=== PATIENT | male | born 1965 | race African-American/Black ===

== ENCOUNTER 2022-11-10 17:22 | Inpatient (IN) | payer OTHER ==
[2022-11-10] MEDS ORDERED: FAMOTIDINE 20 MG/50 ML IVPB 20 MG/50 ML MG IVPB ONE (17:57)
[2022-11-10] MEDS ORDERED: MAG HYDROX/AL HYDROX/SIMETH 30 ML UNIT-DOSE CUP PO ONE (17:57)
[2022-11-10] MEDS ORDERED: ASPIRIN 81 MG CHEWABLE TABLETS ONE (18:48)
[2022-11-10] MEDS ORDERED: ASPIRIN 81 MG CHEWABLE TABLETS PO ONE (19:02)
[2022-11-10 19:19] LABS: BASO % 0.6 % (0-2.0); EOS % 1.2 % (0-4.5); HEMATOCRIT 38.2 % (35.4-49); LYMPH % 30.7 % (8-40); MCH 29.2 pg (25.7-33.7); MCHC 33.9 g/dl (32.0-35.9); MEAN PLT VOLUME 10.1 fl (7.5-11.1); MONO % 6.8 % (3.8-10.2); NEUT % 60.7 % (42.8-82.8); PLATELET COUNT 182 10^3/uL (134-434); RBC 4.45 M/mm3 (4.00-5.60); RDW 15.5 % (11.9-15.9); WHITE BLOOD COUNT 7.6 K/mm3 (4.0-10.0)
[2022-11-10 19:46] LABS: POTASSIUM 3.9 mmol/L (3.5-5.1)
[2022-11-10 19:49] LABS: ALBUMIN 3.6 g/dl (3.4-5.0); BLOOD UREA NITROGEN 10.8 mg/dL (7-18); CALCIUM 9.2 mg/dL (8.5-10.1)
[2022-11-10 19:53] LABS: TOT PROT 7.6 g/dl (6.4-8.2)
[2022-11-10 19:57] LABS: BILIRUBIN,TOTAL 0.5 mg/dL (0.2-1)
[2022-11-10] MEDS ORDERED: ACETAMINOPHEN 325 MG TABLET (FP) PO PRN (20:22)
[2022-11-10] MEDS ORDERED: ISOSORBIDE MONONITRATE 30 MG TAB.SR.24H (FP) PO ONE (21:55)
[2022-11-10] MEDS: ISOSORBIDE MONONITRATE 30 MG TAB.SR.24H (FP) PO SCH (22:01)
[2022-11-10] MEDS: INSULIN SLIDING SCALE (NOVOLOG) 1 VIAL SQ SCH (22:02)
[2022-11-10 23:34] VITALS: BMI 33.6
[2022-11-11] MEDS: INSULIN SLIDING SCALE (NOVOLOG) 1 VIAL SQ SCH ×4 (06:28→21:49)
[2022-11-11 08:01] LABS: HEMATOCRIT 33.7 % (35.4-49); HEMOGLOBIN 11.5 GM/dL (11.7-16.9); MCH 29.2 pg (25.7-33.7); MEAN CELL VOLUME 85.9 fl (80-96); MEAN PLT VOLUME 10.8 fl (7.5-11.1); PLATELET COUNT 162 10^3/uL (134-434); RBC 3.92 M/mm3 (4.00-5.60); RDW 15.7 % (11.9-15.9); WHITE BLOOD COUNT 6.9 K/mm3 (4.0-10.0)
[2022-11-11 08:17] LABS: POTASSIUM 4.1 mmol/L (3.5-5.1)
[2022-11-11 08:20] LABS: CALCIUM 8.5 mg/dL (8.5-10.1)
[2022-11-11 08:21] LABS: ALBUMIN 3.1 g/dl (3.4-5.0); BLOOD UREA NITROGEN 15.8 mg/dL (7-18)
[2022-11-11 08:24] LABS: CREATININE 0.9 mg/dL (0.55-1.3)
[2022-11-11 08:25] LABS: CHOLESTEROL 119 mg/dL (50-200); TOT PROT 6.2 g/dl (6.4-8.2)
[2022-11-11 08:26] LABS: BILIRUBIN,TOTAL 0.5 mg/dL (0.2-1); LDL CHOLESTEROL (ONLY SJRH) 81 mg/dL (5-100)
[2022-11-11 08:29] LABS: HDL CHOLESTEROL 39 mg/dL (40-60)
[2022-11-11] MEDS ORDERED: REGADENOSON 0.4 MG/5 ML PRE-FILLED SYRINGE IVPUSH ONE (09:45)
[2022-11-11] MEDS ORDERED: FLU VACC QS2022-23(6MOS UP)/PF 60 MCG/0.5 ML SYRINGE IM ONE ×2 (09:45→10:00)
[2022-11-11] MEDS ORDERED: ASPIRIN COATED 81 MG TABLET.EC PO SCH (10:00)
[2022-11-11] MEDS: ASPIRIN 81 MG CHEWABLE TABLETS PO SCH (11:53)
[2022-11-11] MEDS: FAMOTIDINE 20 MG TABLET PO SCH (11:53)
[2022-11-11] MEDS: ISOSORBIDE MONONITRATE 30 MG TAB.SR.24H (FP) PO SCH (11:54)
[2022-11-11] MEDS: amLODIPine BESYLATE 5 MG TABLET (FP) PO SCH (11:54)
[2022-11-11] MEDS ORDERED: INSULIN (NOVOLOG) ASPART 100 UNITS/ML 10ML VIAL ONE (16:23)
[2022-11-12] MEDS: INSULIN SLIDING SCALE (NOVOLOG) 1 VIAL SQ SCH (06:25)
[2022-11-12] MEDS: FAMOTIDINE 20 MG TABLET PO SCH (09:07)
[2022-11-12] MEDS: ISOSORBIDE MONONITRATE 30 MG TAB.SR.24H (FP) PO SCH (09:07)
[2022-11-12] MEDS: ASPIRIN 81 MG CHEWABLE TABLETS PO SCH (09:07)
[2022-11-12] MEDS: amLODIPine BESYLATE 5 MG TABLET (FP) PO SCH (09:07)
[2022-11-12 10:24] VITALS: BP 174/95; PULSE 72; RESP 22; TEMP 97.8
== END 2022-11-12 11:32 | disposition short-term general hospital (02) | DRG 205 ==
LOC: JER 17:22 → JERBED 20:21 → J4W 23:03 → OBSVTOIN 11-11 14:29
PROVIDERS: ADMIT Family Medicine; ATTEND Family Medicine
DX: I42.2 Other hypertrophic cardiomyopathy (principal); I25.10 Atherosclerotic heart disease of native coronary artery without angina pectoris; I10 Essential (primary) hypertension; E78.5 Hyperlipidemia, unspecified; R94.31 Abnormal electrocardiogram [ECG] [EKG]; R07.89 Other chest pain; I24.8 Other forms of acute ischemic heart disease; I44.0 Atrioventricular block, first degree; F12.90 Cannabis use, unspecified, uncomplicated; R10.13 Epigastric pain; R06.02 Shortness of breath
CPT/HCPCS: 0241U-QW; 36415; 71046-TC-FY; 78452-TC; 80053; 80061; 82962; 83036; 83690; 83880; 84484; 85025; 85027; 93005; 93010; 93017; 93306-TC; 99285-25; A9502; G0008; G0378; Q2036

== ENCOUNTER 2024-11-09 20:39 | Inpatient (IN) | payer OTHER ==
[2024-11-09 21:31] LABS: ABSOLUTE IMMATURE GRANULOCYTES 0.02 x10^3/uL (0.0-0.031); BASOPHILS # 0.04 x10^3/uL (0.01-0.08); EOSINOPHILS # 0.08 x10^3/uL (0.04-0.54); HEMATOCRIT 37.9 % (40.1-51.0); HEMOGLOBIN 12.7 g/dL (13.7-17.5); MCHC 33.5 g/dl (32.3-36.5); MEAN CELL VOLUME 86.9 fl (79.0-92.2); MEAN PLT VOLUME 12.4 fl (9.4-12.4); MONOCYTE # 0.63 x10^3/uL (0.30-0.82); MONOCYTE % 7.7 % (5.3-12.2); PLATELET COUNT 196 x10^3/uL (163-337); RDW 15.4 % (12.2-16.1)
[2024-11-09 21:43] LABS: INR 1.14 (0.83-1.09); PROTHROMBIN TIME (PATIENT) 12.6 SEC (9.7-13.0)
[2024-11-09 21:45] LABS: ACTIVATED PTT 34.5 SECONDS (25.2-36.5)
[2024-11-09 21:53] LABS: ALBUMIN 4.2 g/dl (3.4-5.0); BILIRUBIN,TOTAL 0.5 mg/dl (0.2-1); CALCIUM 9.5 mg/dl (8.5-10.1); CREATININE 1.3 mg/dl (0.6-1.3); MAGNESIUM 1.4 mg/dL (1.8-2.4); POTASSIUM 3.8 mmol/L (3.5-5.1)
[2024-11-09] MEDS: MAGNESIUM 1GM/D5W - 1 GM/100 ML IVPB IVPB ONE (23:18)
[2024-11-09] MEDS ORDERED: MAGNESIUM 1GM/D5W - 1 GM/100 ML IVPB IVPB ONE (23:18)
[2024-11-09 23:57] LABS: HCV DIAGNOSTIC IN-HOUSE W/RFLX NON-REACTIVE (NONREACTIVE); HIV INTERPRETATION NEGATIVE (NEGATIVE)
[2024-11-10 07:52] LABS: ABSOLUTE IMMATURE GRANULOCYTES 0.02 x10^3/uL (0.0-0.031); BASOPHILS # 0.03 x10^3/uL (0.01-0.08); EOSINOPHIL % 1.3 % (0.8-7.0); EOSINOPHILS # 0.09 x10^3/uL (0.04-0.54); HEMATOCRIT 34.8 % (40.1-51.0); HEMOGLOBIN 11.3 g/dL (13.7-17.5); MCHC 32.5 g/dl (32.3-36.5); MEAN CELL VOLUME 86.8 fl (79.0-92.2); MEAN PLT VOLUME 12.7 fl (9.4-12.4); MONOCYTE # 0.72 x10^3/uL (0.30-0.82); MONOCYTE % 10.1 % (5.3-12.2); PLATELET COUNT 161 x10^3/uL (163-337); RDW 15.7 % (12.2-16.1)
[2024-11-10 09:02] LABS: ALBUMIN 3.2 g/dl (3.4-5.0); BILIRUBIN,TOTAL 0.4 mg/dL (0.2-1); BLOOD UREA NITROGEN 16.3 mg/dL (7-18); CALCIUM 8.9 mg/dL (8.5-10.1); POTASSIUM 3.2 mmol/L (3.5-5.1); TOT PROT 6.5 g/dl (6.4-8.2)
[2024-11-10] MEDS: PANTOPRAZOLE 40 MG TABLET PO SCH (10:23)
[2024-11-10] MEDS: ATORVASTATIN CA 40 MG TABLET (FP) PO SCH (21:42)
[2024-11-11 08:08] LABS: POTASSIUM 3.3 mmol/L (3.5-5.1)
[2024-11-11 08:09] LABS: CALCIUM 9.5 mg/dL (8.5-10.1)
[2024-11-11 08:10] LABS: BLOOD UREA NITROGEN 16.3 mg/dL (7-18); MAGNESIUM 1.6 mg/dL (1.8-2.4)
[2024-11-11] MEDS: LOSARTAN POTASSIUM 50 MG TABLET PO SCH (09:58)
[2024-11-11] MEDS: amLODIPine BESYLATE 5 MG TABLET (FP) PO SCH (09:58)
[2024-11-12 07:38] LABS: ABSOLUTE IMMATURE GRANULOCYTES 0.02 x10^3/uL (0.0-0.031); BASOPHILS # 0.04 x10^3/uL (0.01-0.08); EOSINOPHIL % 1.1 % (0.8-7.0); EOSINOPHILS # 0.09 x10^3/uL (0.04-0.54); HEMATOCRIT 40.6 % (40.1-51.0); HEMOGLOBIN 13.4 g/dL (13.7-17.5); MEAN CELL VOLUME 84.9 fl (79.0-92.2); MONOCYTE # 0.62 x10^3/uL (0.30-0.82); MONOCYTE % 7.9 % (5.3-12.2); PLATELET COUNT 174 x10^3/uL (163-337); RDW 15.2 % (12.2-16.1)
[2024-11-12 08:02] LABS: POTASSIUM 3.2 mmol/L (3.5-5.1)
[2024-11-12 08:05] LABS: ALBUMIN 3.4 g/dl (3.4-5.0); BLOOD UREA NITROGEN 12.7 mg/dL (7-18); CALCIUM 9.6 mg/dL (8.5-10.1); MAGNESIUM 1.7 mg/dL (1.8-2.4)
[2024-11-12 08:10] LABS: BILIRUBIN,TOTAL 0.7 mg/dL (0.2-1)
[2024-11-12] MEDS: HEPARIN NA (PORCINE) 5,000 UNITS/ML 1ML VIAL SQ SCH (09:46)
[2024-11-12] MEDS: LOSARTAN POTASSIUM 50 MG TABLET PO SCH (11:33)
[2024-11-12] MEDS: RANOLAZINE E.R. 500 MG TABLET (FP) PO SCH (11:33)
[2024-11-12] MEDS: MAGNESIUM OXIDE 400 MG TABLET (FP) PO SCH (11:33)
[2024-11-12] MEDS: POTASSIUM CHLORIDE TABS 20 MEQ TABLET.ER (FP) PO SCH (11:33)
[2024-11-12] MEDS: MAGNESIUM SULF 50% (8.12 MEQ/2 ML-1 GM VIAL) IVPB ONE (11:33)
[2024-11-12] MEDS: POTASSIUM CHLORIDE ORAL LIQUID 20 MEQ/15 ML PO ONE (11:34)
[2024-11-12] MEDS: FUROSEMIDE 40 MG/4 ML INJECTABLE VIAL IVPUSH ONE (13:58)
[2024-11-13 07:06] LABS: POTASSIUM 3.3 mmol/L (3.5-5.1)
[2024-11-13 07:09] LABS: BLOOD UREA NITROGEN 9.1 mg/dL (7-18); CALCIUM 9.4 mg/dL (8.5-10.1)
[2024-11-13 07:13] LABS: CREATININE 0.9 mg/dL (0.55-1.3)
[2024-11-13] MEDS: ACETAMINOPHEN 650 MG/20.3 ML ORAL SOLUTION (CUPS) PO PRN (08:50)
[2024-11-13] MEDS ORDERED: ACETAMINOPHEN/CAFFEINE/BUTALBITAL 1 TAB PO PRN (09:36)
[2024-11-13 09:56] VITALS: BMI 34.8
[2024-11-13] MEDS: SPIRONOLACTONE 25 MG TABLET PO SCH (11:32)
[2024-11-13] MEDS: POTASSIUM CHLORIDE ORAL LIQUID 20 MEQ/15 ML PO ONE (11:32)
[2024-11-13] MEDS: METOPROLOL TARTRATE 5 MG/5 ML VIAL IVPUSH PRN (11:32)
[2024-11-14 09:43] LABS: HEMOGLOBIN 13.8 g/dL (13.7-17.5); MCHC 32.9 g/dl (32.3-36.5); MEAN CELL VOLUME 85.9 fl (79.0-92.2); MEAN PLT VOLUME 11.8 fl (9.4-12.4); PLATELET COUNT 219 x10^3/uL (163-337); RDW 15.3 % (12.2-16.1)
[2024-11-14 10:22] LABS: CHLORIDE 106 mmol/L (98-107); POTASSIUM 3.5 mmol/L (3.5-5.1); SODIUM 136 mmol/L (136-145)
[2024-11-14 10:31] LABS: ALK PHOS 67 U/L (45-117)
[2024-11-14 11:29] LABS: SGPT/ALT 25 U/L (13-61)
[2024-11-14 11:31] LABS: ALBUMIN 3.3 g/dl (3.4-5.0); BLOOD UREA NITROGEN 12.4 mg/dL (7-18); CALCIUM 9.4 mg/dL (8.5-10.1); GLUCOSE,RANDOM 188 mg/dL (74-106); MAGNESIUM 1.8 mg/dL (1.8-2.4)
[2024-11-14 11:34] LABS: CREATININE 1.2 mg/dL (0.55-1.3)
[2024-11-14 11:36] LABS: BILIRUBIN,TOTAL 0.3 mg/dL (0.2-1); SGOT/AST 23 U/L (15-37); TOT PROT 7.1 g/dl (6.4-8.2)
[2024-11-14 11:58] LABS: ANION GAP 8 mmol/L (4-13); CO2 22 mmol/L (21-32)
[2024-11-14] MEDS: metoPROLOL SUCCINATE 25 MG TAB.SR.24H (FP) PO SCH (17:05)
[2024-11-15 01:35] VITALS: RESP 18
[2024-11-15 06:46] VITALS: BP 121/74; PULSE 64; TEMP 97.7
== END 2024-11-15 10:15 | disposition home or self-care (01) | DRG 201 ==
LOC: FER 20:39 → J4S 11-10 02:35
PROVIDERS: ADMIT Family Medicine; ATTEND Family Medicine
DX: I44.1 Atrioventricular block, second degree (principal); I10 Essential (primary) hypertension; E78.5 Hyperlipidemia, unspecified; R94.31 Abnormal electrocardiogram [ECG] [EKG]; I42.2 Other hypertrophic cardiomyopathy; I25.10 Atherosclerotic heart disease of native coronary artery without angina pectoris; E87.6 Hypokalemia; E83.42 Hypomagnesemia; I24.89 Other forms of acute ischemic heart disease; G47.33 Obstructive sleep apnea (adult) (pediatric); R00.1 Bradycardia, unspecified; E66.9 Obesity, unspecified; Z68.34 Body mass index [BMI] 34.0-34.9, adult
CPT/HCPCS: 36415; 71045-TC-FY; 80048; 80053; 80061; 81003; 82550; 83605; 83735; 83880; 84439; 84443; 84484; 85025; 85027; 85610; 85730; 86803; 87389; 93005; 93010; 93306-TC; 99285-25; J1644